=== PATIENT | male | born 1970 | race Caucasian/White ===

== ENCOUNTER 2016-09-25 12:13 | Emergency (ER) | payer OTHER ==
[~2016-09-25] VITALS: Ht 170.2 cm; Wt 67.2 kg
[2016-09-25 12:16] VITALS: BP 121/83; PULSE 60; RESP 18; TEMP 98.3; O2SAT 100
[2016-09-25] MEDS ORDERED: IBUP800T23 PO (12:53)
--- NOTE | 2016-09-25 12:53 | PD ---
HPI Chief Complaint: Pain: Acute or Chronic Time Seen by Provider: 12:40 Travel History International Travel<30 days: No Contact w/Intl Traveler<30days: No Traveled to known affect area: No History of Present Illness HPI 46-year-old male presents emergency department for evaluation of right elbow pain and swelling 7 days. Patient denies injury or trauma to the area. He reports previous history of bursitis in the opposite elbow. He reports the area is decreased in size over last several days. This morning he noticed that the left elbow was also becoming swollen prompting his visit to the emergency department today. He denies fevers, chills, nausea, vomiting, abdominal pain. He reports mild aching discomfort in the right elbow, intermittent, worse with flexion, relieved with rest, severity 2 out of 10. PFSH Past Medical History Medical History: Denies Significant Hx Diminished Hearing: No Tetanus Vaccination: < 5 Years Influenza Vaccination: Yes ?: Not Past Surgical History Surgical History: No Previous Surgery Social History Alcohol Use: No Tobacco Use: No Substance Use: No Allergies-Medications (Allergen,Severity, Reaction): Coded Allergies: No Known Allergies (Unverified , 09/25/16) Reported Meds & Prescriptions Reported Meds & Active Scripts Active Ibuprofen 800 Mg Tab 800 Mg PO Q8H PRN Review of Systems Except as stated in HPI: all other systems reviewed are Neg Musculoskeletal: Positive: Other (right elbow bursitis) Physical Exam Narrative GENERAL: Alert, well-appearing male no acute distress. SKIN: Focused skin assessment warm/dry. HEAD: Atraumatic. Normocephalic. EYES: Pupils equal and round. No scleral icterus. No injection or drainage. ENT: No nasal bleeding or discharge. Mucous membranes pink and moist. NECK: Trachea midline. No JVD. CARDIOVASCULAR: Regular rate and rhythm. No murmur appreciated. RESPIRATORY: No accessory muscle use. Clear to auscultation. Breath sounds equal bilaterally. GASTROINTESTINAL: Abdomen soft, non-tender, nondistended. Hepatic and splenic margins not palpable. MUSCULOSKELETAL: No obvious deformities. No clubbing. No cyanosis. No edema. Right upper extremity: Moderate amount of swelling over the right elbow consistent with olecranon bursitis, no warmth or erythema, full range of motion of the elbow. 2+ distal pulses. Extremities neurovascular intact. NEUROLOGICAL: Awake and alert. No obvious cranial nerve deficits. Motor grossly within normal limits. Normal speech. PSYCHIATRIC: Appropriate mood and affect; insight and judgment normal. Data Data Last Documented VS Vital Signs Date Time Temp Pulse Resp B/P Pulse Ox O2 Delivery O2 Flow Rate FiO2 09/25/16 12:36 20 09/25/16 12:16 98.3 60 121/83 100 Orders Ketorolac Inj (Toradol Inj) (09/25/16 13:00) [facility] Medical Decision Making Medical Screen Exam Complete: Yes Emergency Medical Condition: Yes Medical Record Reviewed: Yes Differential Diagnosis Bursitis, rheumatoid arthritis, osteoarthritis, gout Narrative Course 38-year-old male presents emergency department for evaluation of right elbow pain and swelling 7 days. He denies trauma. Patient reports he's had similar symptoms in the past in the opposite elbow. He sought treatment today because he was concerned that both elbows felt slightly swollen. He denies fever, chills, nausea, vomiting or any other medical complaint. On exam patient has right-sided olecranon bursitis. Patient is given a shot of Toradol and prescription for an [facility] primary care doctor. Diagnosis Primary Impression: Bursitis Qualified Code: M70.21 - Olecranon bursitis of right elbow Referrals: Primary Care Physician Additional Instructions: Make an appointment for follow-up with Doctor when you return to [place]. Return to the emergency department if he developed any new or worsening symptoms such as high fevers, chills, nausea, vomiting. Scripts Ibuprofen 800 Mg [id number] Mg PO Q8H PRN (Pain/Inflammation) #30 TAB Prov:Galina Greenberg 09/25/16 Disposition: 01 DISCHARGE HOME Condition: Stable Galina Greenberg Sep 25, 2016 12:53
[2016-09-25] MEDS ORDERED: KETOROLAC TROMETHAMINE 60 MG/2 ML (IM) VIAL IM ONE (13:00)
== END 2016-09-25 13:05 | disposition home or self-care (01) ==
LOC: PHEFT 12:13
DX: M70.21 Olecranon bursitis, right elbow (principal)
CPT/HCPCS: 96372 ×2; 99284; J1885